=== PATIENT | male | born 1940 | race Caucasian/White ===

== ENCOUNTER → 2020-10-10 | Outpatient (CLI) | payer MEDICARE, BC ==
[~2020-10-10] MED LIST: AMLO5TAB88 PO; ASPI-1497 PO; DEXAMETHASONE 4MG/ML 1ML VIAL ONE; DIPH25CA83 PO; EPHEDRINE SULFATE 50MG/ML VIAL ONE; FENTANYL CITRATE/PF 50MCG/ML 2ML VIAL ONE; FLUT9.9S NS; KETOROLAC 30MG/ML VIAL ONE; LIDOCAINE HCL/PF 1% 10 MG/ML 5ML VIAL ONE; MIDAZOLAM HCL 2 MG/2 ML VIAL ONE; NAPR-677 PO; ONDANSETRON HCL 4MG/2ML INJ ONE; PROPOFOL 200MG/20ML VIAL IV ONE; ROCURONIUM BROMIDE 10MG/ML VIAL 5ML IV ONE; SODIUM CHLORIDE 0.9% 10ML VIAL ONE; SUCCINYLCHOLINE CHLORIDE 200MG/10ML IV ONE; SUPER BETA PROSTATE PO
== END | disposition home or self-care (01) ==
LOC: LAB 11:13
PROVIDERS: ATTEND Urology
DX: Z01.812 Encounter for preprocedural laboratory examination (principal); Z20.828 Contact with and (suspected) exposure to other viral communicable diseases
CPT/HCPCS: C9803; U0003

== ENCOUNTER 2020-10-12 05:50 | Day surgery (SDC) | payer MEDICARE, BC ==
[~2020-10-12] VITALS: Ht 170.2 cm; Wt 62.1 kg
[2020-10-12] MEDS ORDERED: LACTATED RINGERS 1,000 ML IV SCH (06:15)
[2020-10-12] MEDS ORDERED: BACITRACIN 15GM TUBE TOP ONE (06:40)
[2020-10-12] MEDS ORDERED: BACITRACIN 50,000 UNITS/VIAL ONE (06:41)
[2020-10-12] MEDS ORDERED: BUPIVACAINE HCL/PF 0.5% (5MG/ML) 10ML ONE (06:41)
[2020-10-12 06:46] LABS: CLARITY URINE CLEAR (CLEAR); COLOR URINE YELLOW (YELLOW); KETONES URINE NEGATIVE (NEGATIVE); LEUKOCYTE ESTERASE URINE NEGATIVE (NEGATIVE); NITRITE URINE NEGATIVE (NEGATIVE); OCCULT BLOOD URINE NEGATIVE (NEGATIVE); PROTEIN URINE NEGATIVE (NEGATIVE); SPECIFIC GRAVITY URINE 1.015 (1.005-1.030); UROBILINOGEN URINE 0.2 E.U./dL (0.2-1.0)
[2020-10-12] MEDS ORDERED: HYDRALAZINE 20MG/ML VIAL IV ONE (07:05)
[2020-10-12] MEDS ORDERED: ALBUTEROL 90MCG/PUFF 17GM INHALER INH ONE (07:47)
[2020-10-12] MEDS ORDERED: AMLO5TAB88 PO (08:17)
[2020-10-12] MEDS ORDERED: FLUT9.9S NS (08:17)
[2020-10-12] MEDS ORDERED: SUPER BETA PROSTATE PO (08:17)
[2020-10-12] MEDS ORDERED: DIPH25CA83 PO (08:17)
[2020-10-12] MEDS ORDERED: ASPI-1497 PO (08:17)
[2020-10-12] MEDS ORDERED: NAPR-677 PO (08:17)
[2020-10-12] MEDS ORDERED: HYDROMORPHONE HCL/PF 2MG/ML CPJ IV PRN (09:45)
== END 2020-10-12 11:30 | disposition home or self-care (01) ==
LOC: OR 05:50
PROVIDERS: ATTEND Urology
DX: N43.3 Hydrocele, unspecified (principal); I10 Essential (primary) hypertension; E78.00 Pure hypercholesterolemia, unspecified; N40.0 Benign prostatic hyperplasia without lower urinary tract symptoms; Z79.82 Long term (current) use of aspirin; Z88.8 Allergy status to other drugs, medicaments and biological substances; Z79.899 Other long term (current) drug therapy; Z87.891 Personal history of nicotine dependence; Z88.0 Allergy status to penicillin
CPT/HCPCS: 55040; 71045; 81003; 88302; C1758; J1100; J1885; J2250; J2405; J2704; J3010; J3490; J0330

== ENCOUNTER 2021-11-01 06:29 | Inpatient (IN) | payer MEDICARE, BC ==
[~2021-11-01] VITALS: Ht 175.3 cm; Wt 59.0 kg
[~2021-11-01 06:29] MED LIST changes: -DEXAMETHASONE 4MG/ML 1ML VIAL ONE; -EPHEDRINE SULFATE 50MG/ML VIAL ONE; -FENTANYL CITRATE/PF 50MCG/ML 2ML VIAL ONE; -KETOROLAC 30MG/ML VIAL ONE; -LIDOCAINE HCL/PF 1% 10 MG/ML 5ML VIAL ONE; -MIDAZOLAM HCL 2 MG/2 ML VIAL ONE; -ONDANSETRON HCL 4MG/2ML INJ ONE; -PROPOFOL 200MG/20ML VIAL IV ONE; -ROCURONIUM BROMIDE 10MG/ML VIAL 5ML IV ONE; -SODIUM CHLORIDE 0.9% 10ML VIAL ONE; -SUCCINYLCHOLINE CHLORIDE 200MG/10ML IV ONE
[2021-11-01] MEDS ORDERED: SODIUM CHLORIDE 0.9% 1,000 ML IV SCH (07:00)
[2021-11-01 07:02] LABS: BASOPHILS % 0.6 % (0.0-2.0); EOSINOPHILS % 1.1 % (0.0-5.0); HEMATOCRIT. 31.7 % (42.0-52.0); HEMOGLOBIN. 10.5 g/dL (14.0-18.0); LYMPHOCYTES % 10.7 % (20.0-50.0); MEAN CORPUSCULAR HEMOGLOBIN 29.8 pg (28.0-32.0); MEAN CORPUSCULAR VOLUME 89.9 fL (80.0-94.0); MEAN PLATELET VOLUME 6.6 fl (7.4-10.4); MONOCYTES % 6.2 % (2.0-8.0); NEUTROPHILS % 81.4 % (40.0-76.0); PLATELET 403 x1000/uL (130-400); RED BLOOD CELL COUNT 3.53 mill/uL (4.7-6.1); RED CELL DISTRIBUTION WIDTH 14.5 % (11.6-14.6)
[2021-11-01 07:07] LABS: CHLORIDE 102 mEq/L (98-107)
[2021-11-01 07:31] LABS: INR 1.1; PARTIAL THROMBOPLASTIN TIME 35.4 sec (23.4-31.0); PROTHROMBIN TIME 11.5 sec (9.6-11.0)
[2021-11-01] MEDS ORDERED: LIDOCAINE HCL 1% 20ML VIAL (Pyxis) INJ ONE (08:05)
[2021-11-01] MEDS ORDERED: BUPIVACAINE HCL/PF 0.5% (5MG/ML) 10ML ONE (08:05)
[2021-11-01] MEDS ORDERED: HEPARIN SODIUM 1,000 UNIT/1ML VIAL IV ONE ×2 (08:05→08:36)
[2021-11-01] MEDS ORDERED: POLYMYXIN B SULFATE 500000 UNITS/VIAL ONE (08:06)
[2021-11-01] MEDS ORDERED: MORPHINE SULFATE/PF 1MG/ML 10ML AMP ONE (08:28)
[2021-11-01] MEDS ORDERED: MORPHINE SULFATE 4 MG/ML CPJ (NOT FOR IM USE) IV PRN (08:30)
[2021-11-01] MEDS ORDERED: CLINDAMYCIN 900 MG PREMIX 50 ML IV ONE (08:32)
[2021-11-01] MEDS ORDERED: MIDAZOLAM HCL 2 MG/2 ML VIAL ONE (08:37)
[2021-11-01] MEDS ORDERED: FENTANYL CITRATE/PF 50MCG/ML 2ML VIAL ONE (08:37)
[2021-11-01] MEDS ORDERED: PROPOFOL 200MG/20ML VIAL IV ONE (08:37)
[2021-11-01] MEDS ORDERED: NALOXONE HCL 0.4MG/ML VIAL IV PRN (08:45)
[2021-11-01] MEDS ORDERED: DEXAMETHASONE 4MG/ML 1ML VIAL ONE (08:49)
[2021-11-01] MEDS ORDERED: ONDANSETRON HCL 4MG/2ML INJ ONE (08:49)
[2021-11-01] MEDS ORDERED: THROMBIN (BOVINE) 5000 UNITS/VIAL TOP ONE (08:55)
[2021-11-01] MEDS ORDERED: CLOP-31 PO (09:27)
[2021-11-01] MEDS ORDERED: LOSA25TA26 PO (09:27)
[2021-11-01] MEDS ORDERED: LABETALOL 5MG/ML SYR 20 MG/4 ML SYRINGE IV PRN ×2 (09:30→17:15)
[2021-11-01] MEDS ORDERED: MEPERIDINE HCL/PF 25MG/ML CPJ IV PRN (09:30)
[2021-11-01] MEDS ORDERED: ONDANSETRON HCL 4MG/2ML INJ IV PRN (09:30)
[2021-11-01] MEDS ORDERED: HYDROMORPHONE HCL/PF 2MG/ML CPJ IV PRN (09:30)
[2021-11-01] MEDS ORDERED: DIPHENHYDRAMINE 50MG/ML VIAL IV NR (12:00)
[2021-11-01] MEDS ORDERED: ENOXAPARIN 60MG/0.6ML SYR SUBCUT SCH (13:00)
[2021-11-01] MEDS ORDERED: BUTORPHANOL TARTRATE 2 MG/ML VIAL IV PRN (13:15)
[2021-11-01] MEDS ORDERED: DIPHENHYDRAMINE 50MG/ML VIAL IM SCH (13:45)
[2021-11-01] MEDS: LORAZEPAM 2MG/ML CPJ IV SCH (13:54)
[2021-11-01] MEDS: HEPARIN 5000 UNITS/ML VIAL IV SCH (19:01)
[2021-11-01 21:24] VITALS: BP 143/57
[2021-11-01] MEDS: AMLODIPINE 5MG TABLET PO SCH (21:45)
[2021-11-01] MEDS: ACETAMINOPHEN 325MG TABLET PO PRN (22:06)
[2021-11-01] MEDS: DIPHENHYDRAMINE 25MG CAPSULE PO PRN (22:07)
[2021-11-01] MEDS: KETOROLAC 30MG/ML VIAL IV PRN (23:37)
[2021-11-02] VITALS: BP 145/65
[2021-11-02] MEDS ORDERED: HYDROMORPHONE HCL/PF 2MG/ML CPJ IV SCH (02:15)
[2021-11-02 04:00] VITALS: BP 154/61
[2021-11-02] MEDS: HEPARIN 5000 UNITS/ML VIAL IV SCH ×2 (06:00)
[2021-11-02] MEDS: DIPHENHYDRAMINE 25MG CAPSULE PO PRN (06:09)
[2021-11-02 07:34] LABS: CHLORIDE 103 mEq/L (98-107)
[2021-11-02 07:40] LABS: BASOPHILS % 0.5 % (0.0-2.0); HEMATOCRIT. 31.3 % (42.0-52.0); HEMOGLOBIN. 10.3 g/dL (14.0-18.0); LYMPHOCYTES % 15.2 % (20.0-50.0); MEAN CORPUSCULAR HEMOGLOBIN 29.9 pg (28.0-32.0); MEAN CORPUSCULAR VOLUME 90.6 fL (80.0-94.0); MEAN PLATELET VOLUME 7.5 fl (7.4-10.4); MONOCYTES % 7.5 % (2.0-8.0); NEUTROPHILS % 75.8 % (40.0-76.0); PLATELET 361 x1000/uL (130-400); RED BLOOD CELL COUNT 3.46 mill/uL (4.7-6.1); RED CELL DISTRIBUTION WIDTH 14.4 % (11.6-14.6)
[2021-11-02 08:00] VITALS: BP 165/58
[2021-11-02] MEDS ORDERED: LOSARTAN POTASSIUM 25 MG TABLET PO SCH (09:00)
[2021-11-02] MEDS: AMLODIPINE 5MG TABLET PO SCH (09:41)
[2021-11-02] MEDS ORDERED: IOPAMIDOL 10 ML VIAL IT ONE (10:47)
[2021-11-02] MEDS ORDERED: BACITRACIN 15GM TUBE TOP ONE (10:48)
[2021-11-02] MEDS ORDERED: LIDOCAINE HCL 1% 20ML VIAL (Pyxis) INJ ONE (10:48)
[2021-11-02] MEDS ORDERED: BUPIVACAINE HCL/PF 0.5% (5MG/ML) 10ML ONE ×2 (10:49→10:50)
[2021-11-02] MEDS ORDERED: POLYMYXIN B SULFATE 500000 UNITS/VIAL ONE (10:49)
[2021-11-02] MEDS ORDERED: HEPARIN SODIUM 1,000 UNIT/1ML VIAL IV ONE (10:49)
[2021-11-02] MEDS ORDERED: PROPOFOL 200MG/20ML VIAL IV ONE (11:26)
[2021-11-02] MEDS ORDERED: FENTANYL CITRATE/PF 50MCG/ML 2ML VIAL ONE ×2 (11:26→13:03)
[2021-11-02] MEDS ORDERED: MIDAZOLAM HCL 2 MG/2 ML VIAL ONE (11:27)
[2021-11-02] MEDS ORDERED: SUCCINYLCHOLINE CHLORIDE 200MG/10ML IV ONE (11:27)
[2021-11-02] MEDS ORDERED: GLYCOPYRROLATE 0.2 MG/ML 2ML VIAL ONE (11:27)
[2021-11-02] MEDS ORDERED: ONDANSETRON HCL 4MG/2ML INJ ONE (11:27)
[2021-11-02] MEDS ORDERED: METOCLOPRAMIDE HCL 10MG/2ML VIAL ONE (11:27)
[2021-11-02] MEDS ORDERED: ROPIVACAINE HCL 10MG/ML 20 ML VIAL EPI ONE (11:31)
[2021-11-02] MEDS ORDERED: HEPARIN 25,000 UNITS PREMIX 250 ML IV SCH (11:45)
[2021-11-02] MEDS ORDERED: THROMBIN (BOVINE) 5000 UNITS/VIAL TOP ONE (12:12)
[2021-11-02] MEDS ORDERED: ONDANSETRON HCL 4MG/2ML INJ IV PRN (12:15)
[2021-11-02] MEDS ORDERED: HYDROMORPHONE HCL/PF 2MG/ML CPJ IV PRN (12:15)
[2021-11-02] MEDS ORDERED: MEPERIDINE HCL/PF 25MG/ML CPJ IV PRN (12:15)
[2021-11-02] MEDS ORDERED: SODIUM CHLORIDE 0.9% 1,000 ML IV ONE (12:15)
[2021-11-02] MEDS ORDERED: HEPARIN 1000 UNITS/ML 10ML ONE (12:23)
[2021-11-02] MEDS: LORAZEPAM 2MG/ML CPJ IV SCH (13:45)
[2021-11-02] MEDS ORDERED: HEPARIN 25,000 UNITS in DEXT 5% WATER 245 ML IV SCH (15:45)
[2021-11-02] MEDS ORDERED: HEPARIN 25,000 UNITS in DEXT 5% WATER 250 ML IV SCH (15:45)
[2021-11-02] MEDS ORDERED: HEPARIN BOLUS PRN aPTT <30 IV (15:45)
[2021-11-02] MEDS ORDERED: HEPARIN BOLUS PRN aPTT 30-44 IV (15:45)
[2021-11-02 17:18] LABS: HEMATOCRIT 29.4 % (42.0-52.0); HEMOGLOBIN 9.6 g/dL (14.0-18.0); MEAN CORPUSCULAR HEMOGLOBIN 29.1 pg (28.0-32.0); MEAN CORPUSCULAR VOLUME 89.4 fL (80.0-94.0); PLATELET 311 x1000/uL (130-400); RED BLOOD CELL COUNT 3.29 mill/uL (4.7-6.1); RED CELL DISTRIBUTION WIDTH 14.4 % (11.6-14.6)
[2021-11-02 17:27] LABS: CHLORIDE 104 mEq/L (98-107)
[2021-11-02] MEDS: KETOROLAC 30MG/ML VIAL IV PRN (21:43)
[2021-11-02 22:00] VITALS: BP 178/135
[2021-11-02] MEDS: CLONIDINE 0.1MG TABLET PO PRN (22:50)
[2021-11-03] VITALS (12 sets, daily range): BP systolic 119–160; BP diastolic 58–72
[2021-11-03] MEDS: DIPHENHYDRAMINE 25MG CAPSULE PO PRN (04:43)
[2021-11-03] MEDS: AMLODIPINE 5MG TABLET PO SCH (09:00)
[2021-11-03] MEDS: LOSARTAN POTASSIUM 25 MG TABLET PO SCH (09:00)
[2021-11-03 09:24] LABS: CHLORIDE 105 mEq/L (98-107)
[2021-11-03 09:25] LABS: HEMOGLOBIN. 8.9 g/dL (14.0-18.0); MEAN CORPUSCULAR HEMOGLOBIN 29.9 pg (28.0-32.0); MEAN CORPUSCULAR VOLUME 90.2 fL (80.0-94.0); MEAN PLATELET VOLUME 7.3 fl (7.4-10.4); PLATELET 297 x1000/uL (130-400); RED CELL DISTRIBUTION WIDTH 14.4 % (11.6-14.6)
[2021-11-03] MEDS ORDERED: HEPARIN 5000 UNITS/ML VIAL IV PRN (11:15)
[2021-11-03] MEDS ORDERED: RIVAROXABAN 10 MG TABLET PO SCH (12:00)
[2021-11-03] MEDS: LORAZEPAM 2MG/ML CPJ IV SCH (13:45)
[2021-11-03 15:55] LABS: PLATELET ESTIMATE NORMAL
[2021-11-04] VITALS (11 sets, daily range): BP systolic 135–167; BP diastolic 66–135
[2021-11-04] MEDS: CLONIDINE 0.1MG TABLET PO PRN ×2 (05:37→23:55)
[2021-11-04] MEDS: LORAZEPAM 2MG/ML CPJ IV SCH (05:37)
[2021-11-04] MEDS: DIPHENHYDRAMINE 25MG CAPSULE PO PRN ×2 (05:56→19:44)
[2021-11-04] MEDS: LOSARTAN POTASSIUM 25 MG TABLET PO SCH (08:50)
[2021-11-04] MEDS: AMLODIPINE 5MG TABLET PO SCH (08:50)
[2021-11-04 09:23] LABS: BASOPHILS % 0.3 % (0.0-2.0); EOSINOPHILS % 0.9 % (0.0-5.0); HEMATOCRIT. 23.9 % (42.0-52.0); LYMPHOCYTES % 7.1 % (20.0-50.0); MEAN CORPUSCULAR HEMOGLOBIN 29.8 pg (28.0-32.0); MEAN CORPUSCULAR VOLUME 89.3 fL (80.0-94.0); MEAN PLATELET VOLUME 7.5 fl (7.4-10.4); NEUTROPHILS % 84.7 % (40.0-76.0); PLATELET 297 x1000/uL (130-400); RED BLOOD CELL COUNT 2.67 mill/uL (4.7-6.1); RED CELL DISTRIBUTION WIDTH 14.4 % (11.6-14.6)
[2021-11-04 09:33] LABS: CHLORIDE 107 mEq/L (98-107)
[2021-11-04] MEDS ORDERED: VANCOMYCIN 1250MG in DEXTROSE 5% WATER 250ML IV NR (11:00)
[2021-11-04] MEDS: ACETAMINOPHEN 325MG TABLET PO PRN (13:46)
[2021-11-04] MEDS: KETOROLAC 30MG/ML VIAL IV PRN ×2 (14:34→23:55)
[2021-11-04] MEDS: RIVAROXABAN 20 MG TABLET PO SCH (17:21)
[2021-11-04] MEDS: VANCOMYCIN 750 MG PREMIX 150 ML IV SCH (22:48)
[2021-11-05] VITALS (7 sets, daily range): BP systolic 134–177; BP diastolic 70–86
[2021-11-05] MEDS: DIPHENHYDRAMINE 25MG CAPSULE PO PRN ×3 (03:48→16:22)
[2021-11-05] MEDS: ACETAMINOPHEN 325MG TABLET PO PRN (04:43)
[2021-11-05] MEDS: LORAZEPAM 2MG/ML CPJ IV SCH (04:44)
[2021-11-05] MEDS: LOSARTAN POTASSIUM 25 MG TABLET PO SCH (08:31)
[2021-11-05] MEDS: AMLODIPINE 5MG TABLET PO SCH (08:32)
[2021-11-05] MEDS ORDERED: VANCOMYCIN 1250MG in DEXTROSE 5% WATER 250ML IV SCH (09:00)
[2021-11-05 09:31] LABS: BASOPHILS % 0.5 % (0.0-2.0); CHLORIDE 103 mEq/L (98-107); EOSINOPHILS % 3.3 % (0.0-5.0); HEMATOCRIT. 24.9 % (42.0-52.0); HEMOGLOBIN. 8.5 g/dL (14.0-18.0); LYMPHOCYTES % 14.2 % (20.0-50.0); MEAN CORPUSCULAR HEMOGLOBIN 30.7 pg (28.0-32.0); MEAN CORPUSCULAR VOLUME 89.9 fL (80.0-94.0); MEAN PLATELET VOLUME 7.4 fl (7.4-10.4); MONOCYTES % 7.8 % (2.0-8.0); NEUTROPHILS % 74.2 % (40.0-76.0); PLATELET 290 x1000/uL (130-400); RED BLOOD CELL COUNT 2.77 mill/uL (4.7-6.1); RED CELL DISTRIBUTION WIDTH 14.1 % (11.6-14.6)
[2021-11-05] MEDS: VANCOMYCIN 750 MG PREMIX 150 ML IV SCH ×2 (11:15→22:01)
[2021-11-05] MEDS: KETOROLAC 30MG/ML VIAL IV PRN (16:25)
[2021-11-05] MEDS: RIVAROXABAN 20 MG TABLET PO SCH (16:26)
[2021-11-05] MEDS: HYDROMORPHONE HCL/PF 2MG/ML CPJ IV PRN (20:41)
[2021-11-05] MEDS: LORAZEPAM 2MG/ML CPJ IV PRN (22:01)
[2021-11-06] VITALS: BP 150/74
[2021-11-06 04:00] VITALS: BP 158/83
[2021-11-06] MEDS: LORAZEPAM 2MG/ML CPJ IV PRN ×2 (04:09→23:45)
[2021-11-06 07:39] LABS: CHLORIDE 103 mEq/L (98-107)
[2021-11-06 08:00] VITALS: BP 132/78
[2021-11-06] MEDS: DIPHENHYDRAMINE 25MG CAPSULE PO PRN ×2 (09:29→17:55)
[2021-11-06] MEDS: LOSARTAN POTASSIUM 25 MG TABLET PO SCH (09:29)
[2021-11-06] MEDS: AMLODIPINE 5MG TABLET PO SCH (09:33)
[2021-11-06] MEDS: HYDROMORPHONE HCL/PF 2MG/ML CPJ IV PRN ×2 (11:18→17:32)
[2021-11-06] MEDS: VANCOMYCIN 750 MG PREMIX 150 ML IV SCH (11:21)
[2021-11-06 12:00] VITALS: BP 159/85
[2021-11-06] MEDS: LORAZEPAM 2MG/ML CPJ IV SCH (13:45)
[2021-11-06 16:00] VITALS: BP 158/69
[2021-11-06] MEDS: ACETAMINOPHEN 325MG TABLET PO PRN ×2 (16:20→17:25)
[2021-11-06] MEDS: RIVAROXABAN 20 MG TABLET PO SCH (16:43)
[2021-11-06 20:00] VITALS: BP 163/75
[2021-11-06] MEDS: VANCOMYCIN 1 G PREMIX 200 ML IV SCH (21:46)
[2021-11-06] MEDS: ONDANSETRON HCL 4MG/2ML INJ IV PRN (21:46)
[2021-11-06] MEDS: OXYCODONE HCL/ACETAMINOPHEN 5/325MG TABLET PO PRN (21:48)
[2021-11-07] VITALS: BP 148/75
[2021-11-07] MEDS: HYDROMORPHONE HCL/PF 2MG/ML CPJ IV PRN ×2 (00:19→04:19)
[2021-11-07 04:00] VITALS: BP 137/72
[2021-11-07] MEDS: OXYCODONE HCL/ACETAMINOPHEN 5/325MG TABLET PO PRN (06:25)
[2021-11-07 08:00] VITALS: BP 144/70
[2021-11-07] MEDS: LOSARTAN POTASSIUM 25 MG TABLET PO SCH (09:14)
[2021-11-07] MEDS: AMLODIPINE 5MG TABLET PO SCH (09:14)
[2021-11-07] MEDS: DIPHENHYDRAMINE 25MG CAPSULE PO PRN ×3 (09:14→20:33)
[2021-11-07] MEDS: VANCOMYCIN 1 G PREMIX 200 ML IV SCH ×2 (09:22→20:32)
[2021-11-07] MEDS ORDERED: HYDROMORPHONE HCL/PF 2MG/ML CPJ IV PRN (09:45)
[2021-11-07] MEDS: HYDROCODONE/ACETAMINOPHEN 10/325MG TABLET PO PRN ×2 (11:31→20:33)
[2021-11-07 12:00] VITALS: BP 138/87
[2021-11-07] MEDS: LORAZEPAM 2MG/ML CPJ IV PRN ×2 (13:15→22:40)
[2021-11-07 16:00] VITALS: BP 144/75
[2021-11-07] MEDS: RIVAROXABAN 20 MG TABLET PO SCH (17:06)
[2021-11-07 20:00] VITALS: BP 143/73
[2021-11-08] VITALS: BP 142/75
[2021-11-08] MEDS: ONDANSETRON HCL 4MG/2ML INJ IV PRN (00:52)
[2021-11-08] MEDS: HYDROCODONE/ACETAMINOPHEN 10/325MG TABLET PO PRN ×3 (00:53→21:05)
[2021-11-08 04:00] VITALS: BP 131/71
[2021-11-08 07:57] VITALS: BP 150/66
[2021-11-08] MEDS: AMLODIPINE 5MG TABLET PO SCH (09:35)
[2021-11-08] MEDS: VANCOMYCIN 1 G PREMIX 200 ML IV SCH ×2 (09:35→21:08)
[2021-11-08] MEDS: LOSARTAN POTASSIUM 25 MG TABLET PO SCH (09:36)
[2021-11-08] MEDS: LORAZEPAM 2MG/ML CPJ IV PRN (14:44)
[2021-11-08 16:00] VITALS: BP 126/69
[2021-11-08 20:00] VITALS: BP 154/72
[2021-11-08] MEDS: DIPHENHYDRAMINE 25MG CAPSULE PO PRN (20:58)
[2021-11-09] VITALS (7 sets, daily range): BP systolic 84–157; BP diastolic 34–83
[2021-11-09] MEDS: ONDANSETRON HCL 4MG/2ML INJ IV PRN (00:50)
[2021-11-09] MEDS: HYDROCODONE/ACETAMINOPHEN 10/325MG TABLET PO PRN ×5 (00:50→21:43)
[2021-11-09] MEDS: DIPHENHYDRAMINE 25MG CAPSULE PO PRN ×2 (05:15→16:25)
[2021-11-09 07:15] LABS: BASOPHILS % 0.7 % (0.0-2.0); EOSINOPHILS % 3.9 % (0.0-5.0); HEMATOCRIT. 25.9 % (42.0-52.0); HEMOGLOBIN. 8.9 g/dL (14.0-18.0); LYMPHOCYTES % 19.2 % (20.0-50.0); MEAN CORPUSCULAR HEMOGLOBIN 30.3 pg (28.0-32.0); MEAN CORPUSCULAR VOLUME 88.8 fL (80.0-94.0); MEAN PLATELET VOLUME 7.9 fl (7.4-10.4); MONOCYTES % 10.4 % (2.0-8.0); NEUTROPHILS % 65.8 % (40.0-76.0); PLATELET 380 x1000/uL (130-400); RED BLOOD CELL COUNT 2.92 mill/uL (4.7-6.1)
[2021-11-09 07:30] LABS: CHLORIDE 101 mEq/L (98-107)
[2021-11-09] MEDS: LOSARTAN POTASSIUM 25 MG TABLET PO SCH (08:52)
[2021-11-09] MEDS: VANCOMYCIN 1 G PREMIX 200 ML IV SCH (08:57)
[2021-11-09] MEDS: AMLODIPINE 5MG TABLET PO SCH (08:57)
[2021-11-09] MEDS: RIVAROXABAN 20 MG TABLET PO SCH ×2 (16:25→21:42)
[2021-11-09] MEDS: GABAPENTIN 100MG CAPSULE PO SCH (21:42)
[2021-11-10] VITALS (7 sets, daily range): BP systolic 128–165; BP diastolic 51–75
[2021-11-10] MEDS: HYDROCODONE/ACETAMINOPHEN 10/325MG TABLET PO PRN ×3 (04:23→20:46)
[2021-11-10] MEDS: DIPHENHYDRAMINE 25MG CAPSULE PO PRN ×2 (05:31→17:29)
[2021-11-10] MEDS: GABAPENTIN 100MG CAPSULE PO SCH ×3 (05:32→20:45)
[2021-11-10] MEDS: LOSARTAN POTASSIUM 25 MG TABLET PO SCH (09:00)
[2021-11-10] MEDS: AMLODIPINE 5MG TABLET PO SCH (09:00)
[2021-11-10] MEDS: RIVAROXABAN 20 MG TABLET PO SCH (17:23)
[2021-11-11] VITALS: BP 155/67
[2021-11-11] MEDS: DIPHENHYDRAMINE 25MG CAPSULE PO PRN ×3 (00:16→21:49)
[2021-11-11] MEDS: HYDROCODONE/ACETAMINOPHEN 10/325MG TABLET PO PRN ×4 (01:24→16:35)
[2021-11-11 04:00] VITALS: BP 154/51
[2021-11-11] MEDS: GABAPENTIN 100MG CAPSULE PO SCH ×3 (06:31→21:49)
[2021-11-11 08:00] VITALS: BP 115/55
[2021-11-11] MEDS: LOSARTAN POTASSIUM 50 MG TABLET PO SCH (09:46)
[2021-11-11] MEDS: AMLODIPINE 5MG TABLET PO SCH (09:47)
[2021-11-11 12:00] VITALS: BP 128/48
[2021-11-11 16:00] VITALS: BP 126/41
[2021-11-11] MEDS: RIVAROXABAN 20 MG TABLET PO SCH (16:35)
[2021-11-11 20:00] VITALS: BP 136/47
[2021-11-12] VITALS: BP 121/64
[2021-11-12] MEDS: HYDROCODONE/ACETAMINOPHEN 10/325MG TABLET PO PRN ×4 (00:17→20:47)
[2021-11-12 04:00] VITALS: BP 131/50
[2021-11-12] MEDS: GABAPENTIN 100MG CAPSULE PO SCH ×3 (05:21→22:36)
[2021-11-12 08:00] VITALS: BP 135/55
[2021-11-12] MEDS: LOSARTAN POTASSIUM 50 MG TABLET PO SCH (09:45)
[2021-11-12] MEDS: AMLODIPINE 5MG TABLET PO SCH (09:45)
[2021-11-12] MEDS ORDERED: NALOXONE HCL 0.4MG/ML VIAL IV PRN (10:30)
[2021-11-12 12:00] VITALS: BP 131/61
[2021-11-12] MEDS ORDERED: HYDROCODONE/ACETAMINOPHEN 10/325MG TABLET PO NR (14:45)
[2021-11-12] MEDS: DIPHENHYDRAMINE 25MG CAPSULE PO PRN ×2 (15:03→22:36)
[2021-11-12 16:00] VITALS: BP 125/61
[2021-11-12] MEDS: RIVAROXABAN 20 MG TABLET PO SCH (16:35)
[2021-11-12 20:00] VITALS: BP 149/39
[2021-11-13] VITALS: BP 115/55
[2021-11-13] MEDS: HYDROCODONE/ACETAMINOPHEN 10/325MG TABLET PO PRN ×5 (01:11→22:53)
[2021-11-13 04:00] VITALS: BP 132/45
[2021-11-13] MEDS: GABAPENTIN 100MG CAPSULE PO SCH ×3 (05:41→21:11)
[2021-11-13 08:00] VITALS: BP 124/43
[2021-11-13] MEDS: AMLODIPINE 5MG TABLET PO SCH (09:06)
[2021-11-13] MEDS: LOSARTAN POTASSIUM 50 MG TABLET PO SCH (09:06)
[2021-11-13 12:00] VITALS: BP 137/83
[2021-11-13 16:00] VITALS: BP 129/46
[2021-11-13] MEDS: RIVAROXABAN 20 MG TABLET PO SCH (17:27)
[2021-11-13] MEDS: ACETAMINOPHEN 325MG TABLET PO PRN (19:00)
[2021-11-13 20:00] VITALS: BP 136/48
[2021-11-13] MEDS: DIPHENHYDRAMINE 25MG CAPSULE PO PRN (21:11)
[2021-11-14] VITALS: BP 114/51
[2021-11-14] MEDS: HYDROCODONE/ACETAMINOPHEN 10/325MG TABLET PO PRN ×2 (03:39→17:10)
[2021-11-14 04:00] VITALS: BP 132/54
[2021-11-14] MEDS: GABAPENTIN 100MG CAPSULE PO SCH ×2 (05:29→12:42)
[2021-11-14] MEDS: ACETAMINOPHEN 325MG TABLET PO PRN (05:29)
[2021-11-14 06:44] LABS: EOSINOPHILS % 4.4 % (0.0-5.0); HEMATOCRIT. 24.6 % (42.0-52.0); HEMOGLOBIN. 8.4 g/dL (14.0-18.0); MEAN CORPUSCULAR HEMOGLOBIN 30.5 pg (28.0-32.0); MEAN CORPUSCULAR VOLUME 89.6 fL (80.0-94.0); MEAN PLATELET VOLUME 7.9 fl (7.4-10.4); MONOCYTES % 8.9 % (2.0-8.0); NEUTROPHILS % 61.7 % (40.0-76.0); PLATELET 362 x1000/uL (130-400); RED BLOOD CELL COUNT 2.75 mill/uL (4.7-6.1); RED CELL DISTRIBUTION WIDTH 14.1 % (11.6-14.6)
[2021-11-14 07:24] LABS: CHLORIDE 104 mEq/L (98-107)
[2021-11-14 08:00] VITALS: BP 127/48
[2021-11-14] MEDS: AMLODIPINE 5MG TABLET PO SCH (09:42)
[2021-11-14] MEDS: LOSARTAN POTASSIUM 50 MG TABLET PO SCH (09:42)
[2021-11-14] MEDS: DIPHENHYDRAMINE 25MG CAPSULE PO PRN (12:42)
[2021-11-14 14:27] LABS: FOLIC ACID (FOLATE) SERUM 4.1 ng/mL (>5.38)
[2021-11-14] MEDS ORDERED: FOLIC ACID 1MG TABLET PO SCH (16:00)
[2021-11-14] MEDS: RIVAROXABAN 20 MG TABLET PO SCH (17:09)
[2021-11-14 18:11] VITALS: BP 145/64
== END 2021-11-14 19:12 | disposition home or self-care (01) | DRG 252 ==
LOC: OR 06:29 → 6EST 17:37 → 5EST 11-02 20:13 → 6EST 11-09 17:42
PROVIDERS: ADMIT Internal Medicine; ATTEND Surgery Vascular Surgery
PROC: 041K0KL Bypass Right Femoral Artery to Popliteal Artery with Nonautologous Tissue Substitute, Open Approach (ICD-10-PCS; principal; 2021-11-01)
PROC: 04CT0ZZ Extirpation of Matter from Right Peroneal Artery, Open Approach (ICD-10-PCS; 2021-11-02)
PROC: 04CR0ZZ Extirpation of Matter from Right Posterior Tibial Artery, Open Approach (ICD-10-PCS; 2021-11-02)
PROC: 04U Lower Arteries, Supplement (ICD-10-PCS; 2021-11-02)
PROC: 04UR0KZ Supplement Right Posterior Tibial Artery with Nonautologous Tissue Substitute, Open Approach (ICD-10-PCS; 2021-11-02)
PROC: 041K0KL Bypass Right Femoral Artery to Popliteal Artery with Nonautologous Tissue Substitute, Open Approach (ICD-10-PCS; 2021-11-02)
PROC: 0HBMXZZ Excision of Right Foot Skin, External Approach (ICD-10-PCS; 2021-11-02)
DX: I73.9 Peripheral vascular disease, unspecified (principal); G93.41 Metabolic encephalopathy; L03.115 Cellulitis of right lower limb; T82.898A Other specified complication of vascular prosthetic devices, implants and grafts, initial encounter; E87.1 Hypo-osmolality and hyponatremia; E78.5 Hyperlipidemia, unspecified; D64.9 Anemia, unspecified; G62.9 Polyneuropathy, unspecified; G89.29 Other chronic pain; I10 Essential (primary) hypertension; J44.9 Chronic obstructive pulmonary disease, unspecified; M54.16 Radiculopathy, lumbar region; F12.90 Cannabis use, unspecified, uncomplicated; R26.9 Unspecified abnormalities of gait and mobility; R53.81 Other malaise; M51.36 Other intervertebral disc degeneration, lumbar region; Z87.891 Personal history of nicotine dependence; Z88.8 Allergy status to other drugs, medicaments and biological substances; Z20.822 Contact with and (suspected) exposure to COVID-19; Z88.0 Allergy status to penicillin; M47.816 Spondylosis without myelopathy or radiculopathy, lumbar region; Z88.5 Allergy status to narcotic agent
CPT/HCPCS: 36415; 80048; 80053; 80202; 82607; 82746; 82962; 84145; 85025; 85027; 87426; 88304; 88311; 92523; 92610; 93005; 97162; 97166; 97530; C1757; C1768; C1884; J0330; J1100; J1170; J1200; J1644; J1650; J1885; J2060; J2175; J2250; J2274; J2405; J2704; J2765; J2795; J3010; J3370; J3490; J7030; J7060; Q0163; Q9966; A4315